=== PATIENT | male | born 1960 | race Two or more races ===

== ENCOUNTER 2018-04-01 17:03 | Inpatient (IN) | payer MEDICAID ==
[~2018-04-01] VITALS: Ht 162.6 cm; Wt 68.9 kg
[2018-04-01 18:05] LABS: CREATININE 1.3 mg/dL (0.6-1.3); POTASSIUM 4.4 mmol/L (3.5-5.1)
[2018-04-01 18:10] LABS: BILIRUBIN,TOTAL 2.2 mg/dL (0.2-1.0); TOTAL PROTEIN, SERUM 6.4 g/dL (6.4-8.2)
[2018-04-01 18:22] LABS: BASOPHILS # (AUTO) 0.1 K/uL (0.0-8.0); BASOPHILS % (AUTO) 1.8 % (0.0-2.0); EOSINOPHILS # (AUTO) 0.1 K/uL (0.0-0.7); EOSINOPHILS % (AUTO) 2.1 % (0.0-7.0); HEMATOCRIT 21.5 % (36.7-47.1); LYMPHOCYTES # (AUTO) 0.6 K/uL (20.0-40.0); MEAN CORPUSCULAR HEMOGLOBIN 30.4 uug (23.8-33.4); MEAN CORPUSCULAR HGB CONC 32 g/dL (32.5-36.3); MEAN CORPUSCULAR VOLUME 93.8 fL (73.0-96.2); MONOCYTES # (AUTO) 0.5 K/uL (2.0-10.0); MONOCYTES % (AUTO) 10.6 % (0.0-11.0); NEUTROPHILS # (AUTO) 3.5 K/uL (1.8-8.9); NEUTROPHILS % (AUTO) 73.5 % (38.5-71.5); PLATELET COUNT (AUTO) 102 K/uL (152-348); WHITE BLOOD COUNT (AUTO) 4.8 K/uL (3.6-10.2)
[2018-04-01 18:26] LABS: EOSINOPHILS % (MANUAL) 2 % (0-8); LYMPHOCYTES % (MANUAL) 13 % (20-40); MONOCYTES % (MANUAL) 4 % (2-10); NEUTROPHILS % (MANUAL) 81 % (42-75)
--- NOTE | 2018-04-01 19:23 | NUR ---
HANDS OFF REPORT GIVEN TO KAMI TIM
--- NOTE | 2018-04-01 19:35 | NUR ---
PT IN BED. PT IS POSITIONED FOR COMFORT. PT IS AAOX3. ABDOMEN IS DISTENDED. NO SIGNS OF DISTRESS WITNESSED AT THIS TIME.
--- NOTE | 2018-04-01 19:57 | NUR ---
[employer] AT BEDSIDE FOR SCAN
--- NOTE | 2018-04-01 20:50 | NUR ---
REPORT GIVEN TO MEDSUR NURSELINH
--- NOTE | 2018-04-01 22:40 | NUR ---
Pt. admitted to [facility], under care of Dr. BARR Belongs List completed
[2018-04-01] MEDS ORDERED: DEXTROSE 50% 50 ML DISP.SYRIN IV PRN (22:45)
[2018-04-01] MEDS ORDERED: MAGNESIUM HYDROXIDE 30 ML LIQUID UDC PO PRN (22:45)
[2018-04-01] MEDS ORDERED: ACETAMINOPHEN 325 MG TABLET PO PRN (22:45)
[2018-04-01] MEDS ORDERED: MORPHINE SULFATE 2 MG/1 ML DISP.SYRIN IV PRN (22:45)
[2018-04-01] MEDS ORDERED: INSULIN REGULAR, HUMAN 300 UNIT/3 ML VIAL SQ PRN (22:45)
[2018-04-01] MEDS ORDERED: ZOLPIDEM 5 MG TABLET PO PRN (22:45)
[2018-04-01] MEDS ORDERED: ONDANSETRON 4 MG/2 ML VIAL IV PRN (22:45)
[2018-04-01] MEDS ORDERED: THIAMINE HCL INJ 100 MG in IV DEXTROSE 5% 50 ML IV SCH (22:45)
[2018-04-01 23:03] VITALS: BP 118/78
[2018-04-01] MEDS ORDERED: LORAZEPAM 2 MG/1 ML VIAL IV PRN (23:15)
--- NOTE | 2018-04-01 23:59 | NUR ---
Nursing Note: Received report from Max MCCLURE. Pt admitted to Med/Surg Unit. Pt awake alert and oriented x 3. No complaints of pain at this time. Respirations even and unlabored. Lungs clear on auscultation. Pt noted with mild JVD. Abdomen severely distended. Bowel sounds present in all 4 quadrants. Pt noted with ascites. Plan of care relayed to myself by PLANT TECHNICIAN. Patient able to complete all admission data collection. Pt stated that he is currently not in any pain and needs to get rest. Pt noted to be ambulatory with assistance and was able to use restroom. Oriented pt to room. Pt aware of where call light is and is able to ask for assistance when needed. Pt bed in low position. Side rails up x 2 when in bed. Bed in locked position and alarm engaged. Call light within reach at all times. Frequent visual checks. Will continue to monitor.
[2018-04-02] MEDS ORDERED: THIAMINE HCL 200 MG/2 ML VIAL ONE (00:05)
--- NOTE | 2018-04-02 04:11 | NUR ---
Nursing Note: Pt resting comfortably in bed. Respirations even and unlabored at this time. No complaints of pain at this time. Medication administered as ordered with no adverse reaction. IV site on left fore arm intact and patent with no signs and symptoms of infiltration. Bed in low and locked position. Alarm engaged. Call light in reach all times. Frequent visual checks. Will continue to monitor.
[2018-04-02 05:19] VITALS: BP 102/72
[2018-04-02] MEDS: BLOOD SUGAR DIAGNOSTIC 1 EACH STRIP VI SCH ×2 (06:29→12:48)
[2018-04-02 06:33] LABS: BASOPHILS # (AUTO) 0.1 K/uL (0.0-8.0); BASOPHILS % (AUTO) 1.8 % (0.0-2.0); EOSINOPHILS # (AUTO) 0.1 K/uL (0.0-0.7); EOSINOPHILS % (AUTO) 1.3 % (0.0-7.0); HEMATOCRIT 22.2 % (36.7-47.1); LYMPHOCYTES # (AUTO) 0.7 K/uL (20.0-40.0); MEAN CORPUSCULAR HEMOGLOBIN 31.1 uug (23.8-33.4); MEAN CORPUSCULAR HGB CONC 33 g/dL (32.5-36.3); MEAN CORPUSCULAR VOLUME 94.8 fL (73.0-96.2); MONOCYTES # (AUTO) 0.5 K/uL (2.0-10.0); MONOCYTES % (AUTO) 7.8 % (0.0-11.0); NEUTROPHILS # (AUTO) 5.2 K/uL (1.8-8.9); NEUTROPHILS % (AUTO) 79.1 % (38.5-71.5); PLATELET COUNT (AUTO) 102 K/uL (152-348); WHITE BLOOD COUNT (AUTO) 6.5 K/uL (3.6-10.2)
[2018-04-02 06:46] LABS: RED BLOOD CELL COUNT(AUTO) 2.35 MIL/uL (4.06-5.63)
[2018-04-02 06:47] LABS: HEMOGLOBIN 7.3 g/dL (12.5-16.3)
[2018-04-02 06:54] LABS: BILIRUBIN,DIRECT 1.1 mg/dL (0.0-0.2); CREATININE 1.2 mg/dL (0.6-1.3); MAGNESIUM 1.7 mg/dL (1.8-2.4); POTASSIUM 4.1 mmol/L (3.5-5.1); TOTAL PROTEIN, SERUM 6.3 g/dL (6.4-8.2)
[2018-04-02 06:57] LABS: THYROID STIMULATING HORMONE 2.681 mIU/mL (0.358-3.740)
--- NOTE | 2018-04-02 06:57 | NUR ---
Nursing Note: Received phone call from lab regarding Critical 7.3 Hgb. Will endorse to oncoming RN. PT resting in bed. Respirations even and unlabored. No acute distress at this time. Bed in low locked position. Call light in reach. Will continue to monitor
[2018-04-02] MEDS ORDERED: FOLIC ACID 1 MG TABLET PO SCH (09:00)
[2018-04-02] MEDS ORDERED: PANTOPRAZOLE SODIUM 40 MG VIAL IV SCH (09:00)
--- NOTE | 2018-04-02 09:00 | NUR ---
PATIENT IS ALERT AND ORIENTED SPOKE WITH HIM REGARDING HIS HOME MEDICATIONS HE WAS UNABLE TO REMEMBER ALL THE MEDICATIONS AND THE DOSAGES BUT HANDED ME HIS DISCHARGE PAPERS FROM [facility] STATED THAT ALL THE MEDICATIONS HE TAKES IS THERE SO I COPIED AND DOCUMENTED THEM HIS HOME MEDS.
[2018-04-02] MEDS ORDERED: SPIR100T5 PO (09:25)
[2018-04-02] MEDS ORDERED: INSU100V7 SQ (09:25)
[2018-04-02] MEDS ORDERED: THIA100T13 PO (09:25)
[2018-04-02] MEDS ORDERED: FURO-151 PO (09:25)
[2018-04-02] MEDS ORDERED: LIDOCAINE HCL 1% 20 ML VIAL IJ PRN (10:30)
--- NOTE | 2018-04-02 10:36 | NUR ---
PATIENT IS FOR PARACENTESIS TODAY PATIENT AWARE AND CONSCENT OBTAINED PER THE ULTRA SOUND TECH THE RADIOLOGIST WILL DO THIS PROCEDURE SOON.
[2018-04-02 11:52] VITALS: BP 107/69
--- NOTE | 2018-04-02 12:00 | NUR ---
PARACENTESIS COMPLETED WITH 7400 ML REMOVED FROM THE LEFT SIDE OF THE ABDOMEN TOLERATED PROCEDURE WELL BAND AIDE APPLIED WITH NO BLEEDING AT THIS TIME PATIENT IS FOR DISCHARGE TODAY HE IS AWARE AND STATED THAT IT WAS OKAY WILL GO LATER THIS EVENING PHARMACY AWARE TO RELEASE THE ALBUMIN SO THAT I CAN GIVE IT TO HIM BEFORE HE LEAVES AND EXPRESSED UNDERSTANDING.
[2018-04-02] MEDS ORDERED: ALBUMIN HUMAN 25% 50 ML IV ONE (12:01)
--- NOTE | 2018-04-02 12:04 | NUR ---
FLUID IS CLEAR PALE YELLOW ONE OF THE BOTTLE WAS SENT TO THE LAB FOR TESTS ORDERED AND THE REST WAS DISPOSED.
[2018-04-02] MEDS ORDERED: MAGNESIUM OXIDE 400 MG TABLET PO ONE (12:30)
--- NOTE | 2018-04-02 13:56 | NUR ---
ORDER NOTED TO DISCHARGE PATIENT HOME TODAY PATIENT HAS STEVE ON HIS HEAD STATED WAS PLACED AT [facility] AFTER A FALL INCIDENT THAT HE HAS CALLED DR HUTCHINS AND INFORMED HIM TO SEE WHAT WILL BE THE NEXT PLAN OF CARE AND HE STATED TO GO AHEAD AND DISCHARGE THE PATIENT WITH THE STEVE.WILL INSTRUCT THE PATIENT TO FOLLOW UP AT [facility] FOR REMOVAL OF THE STEVE.
--- NOTE | 2018-04-02 15:00 | NUR ---
PATIENT DISCHARGED TAKEN BY W/CHAIR TO [facility] ON [address] TO CATCH THE BUS STATED RENTS A ROOM AT [facility] IN[facility] TO FOLLOW UP WITH HIS DOCTOR FOR THE STEVE ON HIS HEAD AND ALSO TAKE MEDICATIONS ORDERED AND HE EXPRESSED UNDERSTANDING.
== END 2018-04-02 15:00 | disposition home or self-care (01) | DRG 280 ==
LOC: ER 17:05 → MED 21:01
PROVIDERS: ADMIT Internal Medicine; ATTEND Nurse Practitioner Acute Care
PROC: 0W9G3ZZ Drainage of Peritoneal Cavity, Percutaneous Approach (ICD-10-PCS; principal; 2018-04-02)
DX: K70.31 Alcoholic cirrhosis of liver with ascites (principal); D69.59 Other secondary thrombocytopenia; E11.65 Type 2 diabetes mellitus with hyperglycemia; E83.51 Hypocalcemia; E88.09 Other disorders of plasma-protein metabolism, not elsewhere classified; Z59.0 Homelessness; F10.188 Alcohol abuse with other alcohol-induced disorder; Y90.0 Blood alcohol level of less than 20 mg/100 ml; Z91.14 Patient's other noncompliance with medication regimen; K27.9 Peptic ulcer, site unspecified, unspecified as acute or chronic, without hemorrhage or perforation; D64.9 Anemia, unspecified; S42.021A Displaced fracture of shaft of right clavicle, initial encounter for closed fracture; X58.XXXA Exposure to other specified factors, initial encounter; Y92.89 Other specified places as the place of occurrence of the external cause
CPT/HCPCS: 36415; 71045; 83690; 83735; 83986; 84100; 84443; 85025; 85730; 86850; 86900; 86901; 87070; 87205; 93005; A4663; C9113; G0480; J1815; J3411; J3490; J7060; P9047